=== PATIENT | female | born 1970 | race Caucasian/White ===

== ENCOUNTER 2017-05-07 08:05 | Emergency (ER) | payer BC ==
[~2017-05-07] VITALS: Ht 170.2 cm; Wt 173.3 kg
[~2017-05-07 08:05] MED LIST: ATIVAN GENERIC 11 MG PO; FUROSEMIDE40 MG PO; HYDROCODONE-APA1 TA1 PO; INDOCIN25 M1 PO; VISTARIL25 M1 PO
[2017-05-07] MEDS ORDERED: GABAPENTIN300 M1 PO (08:13)
[2017-05-07] MEDS ORDERED: TRAMADOL 50MG T50 MG PO (08:13)
--- NOTE | 2017-05-07 08:15 | Emergency Room Report ---
History of Present Illness Time Seen by MD Johnson Presenting Problem in Triage Pt arrived:Walked Presenting Problem:1ST DEGREE PAT TO LEFT HAND : DIGITS 2,3,4 AFTER GRABBING A FLAT IRON Onset of symptoms date/time:/ or onset unknown for:MEDICAL HX UNKNOWN Treatment Prior to Arrival: ICE [employer]ICITING [employer]ENT Provided by:SELF Sepsis Risk Assessment: Temp: 97.9 B/P: 156/103 MAP: 120 Pulse: 62 Resp: 18 Recent fever? N Clinical Suspician of Infection? N Mental Status: 1 - Regular (Normal Baseline) Sepsis Risk:Low Sepsis Risk Have you (or family members/close friends) recently traveled outside the [place]? N If Yes, where/when: Have you had exposure to infectious disease within the past month? TB? Other? Specify: Comment The patient burned her LEFT middle, ring, and small fingers on a flat iron this morning. She complains of pain in the areas of the burn which are on the palm side distal phalanges. Last tetanus shot is unknown. She took ibuprofen, tramadol and gabapentin this morning without relief. ALLERGIES Coded Allergies: No Known Allergies (05/07/17) Home Medications Reported Medications Gabapentin 300 MG PO BID #60 Tramadol Hcl (Tramadol 50MG) 50 MG PO DAILYP PRN PAIN #90 History Medical History General Angina: No [place]: No Hypertension? Yes Hyperlipidemia? No CHF? No COPD? No Asthma? No CVA? No Seizures? No Diabetes? No GB Disease: Yes MRSA? No TB? No Cancer? No Immunization Hx Ped.Immunizations UTD Yes DT/Tetanus NOT SURE Surgical Hx Previous Surgery?Y [place] [employer] Hx LMP N/A Social History Smoking Hx Smoker: Never Smoker Tobacco: No Type N/A Are you/the child exposed to second-hand smoke: No Alcohol Alcohol: No Review of Systems All Other Systems Reviewed and Negative Constitutional denies fever Skin see HPI Physical Exam Vital Signs Vital Signs Date Time Temp Pulse Resp B/P Pulse O2 O2 Flow FiO2 Ox Delivery Rate 05/07 0843 18 05/07 0836 62 18 152/95 98 05/07 0809 97.9 62 18 156/103 98 General Appearance mild distress Respiratory Status No: respiratory distress. Cardiovascular regular rate/rhythm, normal peripheral pulses Extremities Partial thickness pat on the finger pads of her LEFT ring, middle, and small fingers. Intact vesicles present on the small finger and ring finger and appear to be developing on the middle finger. Distal neurovascular status intact. Neurologic alert, no motor/sensory deficits Medical Decision Making LABS/Meds/Orders Pt receiving controlled substance in ED? Yes Ehsan was queried for this patient? Yes Comment [id number] rxs. last rx tramadol on 04/22/17. Results/Orders Current Medication Orders Sig/Heena Start time Last Medication Dose Route Stop Time Status Admin Diphtheria/Pertussis/ 0 .STK-MED ONE 05/07 831 DC Tetanus Vacc IM Diphtheria/Pertussis/ 0.5 ML ONCE ONE 05/07 830 DC 05/07 Tetanus Vacc IM 05/0737 Oxycodone/ 1 EACH ONCE ONE 05/07 830 DC 05/07 Acetaminophen PO 05/07 Oxycodone/ 0 .STK-MED ONE 05/07 830 DC Acetaminophen PO Silver Sulfadiazine 50 GM ONCE ONE 05/07 830 DC 05/07 TP 05/07 Silver Sulfadiazine 0 .STK-MED ONE 05/07 830 DC .ROUTE Orders Procedure Date/time Status GEN NSG/PT REQ (NOT FOR MEDS!) 05/07 826 Active Progress - No full thickness or circumferential pat. Normal neurovascular status with no signs of circulatory compromise. Departure Departure Disposition DC Home or Self Care(routine) Clinical Impression Primary Impression: Burn of left hand including fingers Qualifiers: Encounter type: initial encounter Burn degree: partial thickness ( 2nd degree) Qualified Code: T23.202A - Burn of second degree of left hand, unspecified site, initial encounter Condition STABLE Patient Instructions DI for Pat Additional Instructions Additional instructions for PAT: Clean your burn with a warm, wet, soapy washcloth each day by stroking over the burn one time. This will remove any loose blisters. Any blisters that remain will come off on subsequent days. Apply antibiotic ointment and bandage. Continue this treatment daily until the burn heals, usually 1-2 weeks. Return if high fever greater than 101 degrees, pus drainage, red streaks. Additional instructions for CONTROLLED SUBSTANCES: You have been prescribed a medication that is a controlled substance. Controlled substances include pain medications known as opiates and sedative nerve medications known as benzodiazepines. Some common opiates include: Codeine (such as Tylenol #3) Hydrocodone (Vicodin, Lortab, Lorcet, Bartelso) Oxycodone (Percocet, Percodan, Oxycodone, Oxy IR) Some common benzodiazepines include: Diazepam (Valium) Lorazepam (Ativan) Alprazolam (Xanax) Clonazepam (Klonopin) Oxazepam (Serax) All of these controlled substances are highly addictive and frequently abused. Misuse can and frequently does lead to addiction as well as overdose and . Short term supplies, 3 days or less, are prescribed because of the highly addictive nature of the medication. Any of the controlled substance medication NOT taken should be disposed of properly and NOT SAVED. The recommended method of disposing of unused medications is: Place the medicines in a sealable plastic bag. If the medicine is a solid, crush it or add water to dissolve it. Add something undesirable (cat litter, coffee grounds, etc.) Dispose of sealed bag in household trash Do not flush or pour unused medicines down a sink or drain. Also, because of the addictive nature and frequent abuse, these medications are sometimes stolen. These medications should be kept in a safe place where they cannot be stolen. Do not keep them in your car or purse. Lost or stolen prescriptions for controlled substances WILL NOT BE REFILLED in this emergency department, regardless of whether a police report was filed. Prescriptions Current Visit Scripts OXYCODONE HCL/ACETAMINOPHEN (Percocet 5-325 MG Tablet) 1 TAB PO Q6HP PRN pain #10 TAB ED Critical Care Critical Care No at 0909
[2017-05-07] MEDS ORDERED: PERCOCET1 TAB PO (08:26)
[2017-05-07 08:36] VITALS: BP 152/95
== END 2017-05-07 08:45 | disposition home or self-care (01) ==
LOC: ER 08:05
DX: T23.202A Burn of second degree of left hand, unspecified site, initial encounter (principal); I10 Essential (primary) hypertension; X17.XXXA Contact with hot engines, machinery and tools, initial encounter; Y92.019 Unspecified place in single-family (private) house as the place of occurrence of the external cause